=== PATIENT | female | born 1975 | race Two or more races ===

== ENCOUNTER 2019-04-15 11:21 | Emergency (ER) | payer OTHER ==
[~2019-04-15] VITALS: Wt 56.5 kg
[~2019-04-15 11:21] MED LIST: MECL12.574 PO
[2019-04-15] MEDS ORDERED: SOD CHLORIDE 0.9% 1,000 ML IV STA (13:49)
[2019-04-15] MEDS ORDERED: ONDANSETRON 4 MG INJ IV STA (13:49)
[2019-04-15] MEDS ORDERED: MECLIZINE 12.5 MG TAB PO ONE (14:00)
[2019-04-15 15:46] VITALS: BP 109/68; PULSE 69; RESP 18
== END 2019-04-15 15:46 | disposition home or self-care (01) ==
LOC: FTE 11:21
DX: R42 Dizziness and giddiness (principal); R11.10 Vomiting, unspecified
CPT/HCPCS: 36415; 80048; 81001; 81025; 85025; 93005; 96374; 99284; J2405; J7030